=== PATIENT | male | born 1975 | race Caucasian/White ===

== ENCOUNTER → 2024-10-22 | Outpatient (CLI) | payer BC, SELFPAY ==
[2024-10-22 10:36] LABS: Glucose Estimated Average 140 mg/dL (80-131); Hemoglobin A1C 6.5 % Hgb (4.8-6.0)
== END | disposition home or self-care (01) ==
LOC: COPL 08:48
PROVIDERS: PCP Family Medicine; Referring Provider Family Medicine; Visit Provider Family Medicine
DX: R73.03 Prediabetes (principal)
CPT/HCPCS: 36415; 83036

== ENCOUNTER 2024-10-25 09:33 | Outpatient (AMB) | payer BC, SELFPAY ==
[2024-10-25 09:41] VITALS: BP 166/107; PULSE 87; RESP 19; TEMP 36.5; O2SAT 94; BMI 51.7
--- NOTE | 2024-10-25 09:41 | GSCOFFNT_ITS ---
Vital Signs - [facility] 10/25/24 09:41 Height 1.73 m Height Method Stated Weight 154.363 kg Weight Measurement Method Standing Scale BMI 51.7 BP 166/107 H Blood Pressure Source Automatic Cuff Blood Pressure Location Left Upper Arm Position Sitting Respiration 19 Pulse 87 Pulse Source Monitor Temp 97.7 F Temp Source Temporal Artery Scan Pulse Oximetry (%) 94 L Oxygen Delivery Method Room Air Med/Allergies Allergies & Medications Allergies ciprofloxacin [From Cipro] Allergy (Verified 10/25/24 09:42) Difficulty Breathing Medication Reconciliation amlodipine 10 mg tablet 10 mg PO QDAY 01/20/18 [History Confirmed 10/25/24] carvedilol 6.25 mg tablet 6.25 mg PO BID 01/20/18 [History Confirmed 10/25/24] fenofibric acid (choline) 135 mg capsule,delayed release (Trilipix) 135 mg PO QDAY 01/20/18 [History Confirmed 10/25/24] lisinopril 40 mg tablet 40 mg PO QDAY 01/20/18 [History Confirmed 10/25/24] omeprazole 20 mg capsule,delayed release 20 mg PO QDAY 01/20/18 [History Confirmed 10/25/24] simvastatin 20 mg tablet 20 mg PO QAM 01/20/18 [History Confirmed 10/25/24] hydrocodone 7.5 mg-acetaminophen 325 mg tablet ([place]) 1 tab PO Q6H PRN pain #10 tabs 03/04/18 [Rx Confirmed 10/25/24] MA Intake Visit Data Collection New Patient or Established: New Patient (never been to [facility]) Seen by Clinical Staff ONLY (RN/MA): No Reason for Visit:: COLONOSCOPY Pain Present Currently: No Application Systems Engineer Required: No PCP or OBGYN visit in last 3 months: Yes Hx Now: No Do You Feel Safe at Home: Yes Authorities Contacted: N/A Smoking Status Smoking Status: Former smoker Immunization / Flu Flu Vaccine in the Last 12 Months: No Flu Vaccine Exclusion Criteria: Refused by Patient Past Medical History Past Medical History NEUROLOGIC: Negative Neurological Disorders or Seizures CARDIAC: Positive Cardiac Disorders, Hypercholesterolemia (TAKES MED) and Hypertension (TAKES MED); Negative Congestive Heart Failure RESPIRATORY: Negative Chronic Obstructive Pulmonary Disease (COPD) GASTROINTESTINAL: Positive Gastrointestinal Disorders and Obesity GENITOURINARY: Negative Renal Disease MUSCULOSKELETAL: Positive Fractures (LEFT HAND THUMB HAD A THUMB SPICA AT 13 YRS OLD) ENDOCRINE: Negative Endocrine Disorders, Diabetes Mellitus Type 1 or Diabetes Mellitus Type 2 HEMATOLOGIC: Negative Blood Disorders OTHER HISTORY: Positive Chicken Pox; Negative Autoimmune Disease, Blood Transfusions, Blood Transfusion Reaction or Anesthesia Reactions Family History FAMILY HISTORY: Positive Family Cardiac Disorders (mother), Family Cancer and Family Surgery (MOTHER) Social History SMOKING STATUS: Smoking status: Former smoker ALCOHOL: Alcohol Intake: Current HOUSING: Housing: House HPI HPI Narrative 49M with HTN, HLD, GERD here to discuss screening colonoscopy. Pt had been first seen in 2022 for the same reason and was scheduled for colonoscopy a number of times but preferred to hold off. He denies any recent changes in bowel habits, b lood in stool, anorexia and unintentional weight loss, overall feels very well PMH: HTN, HLD, GERD PSHx: Vasectomy Meds: No antiplt or anticoagulation Allergies: Cipro Family hx: mom had breast CA, cousins and grandparents had breast/esophageal but no colon CA ROS Review of Systems Systems Reviewed: All systems reviewed, normal except as documented Objective/Exam General General Appearance: alert, cooperative and well groomed Resp Respiratory exam: Absent respiratory distress Assessment & Plan Diagnosis / Problem List (1) Encounter for screening colonoscopy: Status: Acute Assessment & Plan: 49M with HTN, HLD, GERD due for screening colonoscopy. I explained prep as well as benefits/risks including bleeding, perforation requiring emergency surgery and/or the need to abort prematurely for safety. Pt expressed understanding and agrees to proceed Office Procedures GNS Level of Care Nursing/Assessment Patient Status: Initial/New Patient Nursing Assessment/Reassesment: Medication Reconciliation, Update PMH in EMR and Vital Signs Coordination of Care: Complex Care and Chronic Disease 1-5, Consent,records obtained, informed consent, Education Simp Pt/Fam and Staff clarify orders New Patient Charge New Patient Point Assignment: [id number] New Patient Point Charge: ROUTE SUPERVISOR Level 3 ([id number]) Patient Portal Questionaires Social History Living Situation History Housing: House Tobacco History Smoking Status: Former smoker Alcohol History Alcohol Intake: Current Domestic Abuse History Do You Feel Safe at Home: Yes Review of Systems Report any current symptoms Only answer those that you have currently: Past Medical History Past Medical History Have you ever been diagnosed with any of the following: Neurological Problems Seizures: No Cardiology Problems Hypercholesterolemia: Yes (TAKES MED) Congestive Heart Failure: No Hypertension: Yes (TAKES MED) Respiratory Problems Chronic Obstructive Pulmonary Disease (COPD): No Stomache/Intestinal Problems Obesity: Yes Genital/Urinary Problems Renal Disease: No Musculoskeletal Problems Fractures: Yes (LEFT HAND THUMB HAD A THUMB SPICA AT 13 YRS OLD) Endocrine Problems Diabetes Mellitus Type 1: No Diabetes Mellitus Type 2: No Other Problems Autoimmune Disease: No Blood Transfusions: No Blood Transfusion Reaction: No Anesthesia Reactions: No Chicken Pox: Yes
== END 2024-10-25 09:54 | disposition home or self-care (01) ==
LOC: HODSRG 09:33
PROVIDERS: PCP Family Medicine; Referring Provider Family Medicine; Supervising Provider Surgery; Visit Provider Surgery
DX: Z01.818 Encounter for other preprocedural examination (principal)
CPT/HCPCS: 99203; G0463